=== PATIENT | female | born 1970 | race Caucasian/White ===

== ENCOUNTER → 2020-09-26 | Outpatient (CLI) | payer BC ==
[2020-09-26 08:16] LABS: HEMOGLOBIN 14.3 gm/dl (12.3-15.3); RED BLOOD COUNT 4.78 M/UL (4.00-5.10); WHITE BLOOD COUNT 7.9 K/UL (4.5-11.0)
[2020-09-26 08:55] LABS: BUN/CREATININE RATIO 19 (0-10)
== END ==
LOC: LAB 07:27
PROVIDERS: Nurse Practitioner Family
DX: Z00.00 Encounter for general adult medical examination without abnormal findings (principal); M25.50 Pain in unspecified joint; J30.9 Allergic rhinitis, unspecified; E78.5 Hyperlipidemia, unspecified; E03.9 Hypothyroidism, unspecified; K58.9 Irritable bowel syndrome, unspecified; R10.13 Epigastric pain; E53.8 Deficiency of other specified B group vitamins; E79.0 Hyperuricemia without signs of inflammatory arthritis and tophaceous disease; R53.83 Other fatigue
CPT/HCPCS: 36415; 80053; 80061; 82607; 84439; 84443; 84550; 85025

== ENCOUNTER → 2020-11-22 | Outpatient (CLI) | payer BC ==
[2020-11-23 15:09] LABS: ENDOMYSIAL ANTIBODY IGA Negative (Negative); IMMUNOGLOBULIN A, QN, SERUM 126 mg/dL (87-352); T-TRANSGLUTAMINASE (TTG) IGA <2 U/mL (0-3); T-TRANSGLUTAMINASE (TTG) IGG 3 U/mL (0-5)
== END ==
LOC: LAB 10:54
PROVIDERS: Nurse Practitioner Family
DX: E03.9 Hypothyroidism, unspecified (principal); R10.84 Generalized abdominal pain; R14.0 Abdominal distension (gaseous)
CPT/HCPCS: 36415; 82784; 84439; 84443

== ENCOUNTER → 2021-01-18 | Outpatient (CLI) | payer BC ==
[2021-01-18 07:57] LABS: HEMOGLOBIN 14.9 gm/dl (12.3-15.3); RED BLOOD COUNT 4.69 M/UL (4.00-5.10); WHITE BLOOD COUNT 7.9 K/UL (4.5-11.0)
[2021-01-18 08:08] LABS: BUN/CREATININE RATIO 21 (0-10)
[2021-01-19 07:10] LABS: VITAMIN D, 25-HYDROXY 57.2 ng/mL (30.0-100.0)
[2021-01-19 10:14] LABS: INSULIN 10.9 uIU/mL (2.6-24.9)
== END ==
LOC: LAB 07:19
PROVIDERS: Nurse Practitioner Family
DX: R53.83 Other fatigue (principal); E78.5 Hyperlipidemia, unspecified; M25.50 Pain in unspecified joint
CPT/HCPCS: 36415; 80053; 80061; 82607; 84439; 84443; 84550; 85025; 86141

== ENCOUNTER → 2021-05-20 | Outpatient (CLI) | payer BC ==
[2021-05-20 10:22] LABS: HEMOGLOBIN 14.3 gm/dl (12.3-15.3); RED BLOOD COUNT 4.69 M/UL (4.00-5.10); WHITE BLOOD COUNT 6.8 K/UL (4.5-11.0)
== END ==
LOC: LAB 09:56
PROVIDERS: Nurse Practitioner Family
DX: Z00.00 Encounter for general adult medical examination without abnormal findings (principal); E78.5 Hyperlipidemia, unspecified; E03.9 Hypothyroidism, unspecified; J30.9 Allergic rhinitis, unspecified; M25.50 Pain in unspecified joint; K58.9 Irritable bowel syndrome, unspecified; R10.13 Epigastric pain; E53.8 Deficiency of other specified B group vitamins; R53.83 Other fatigue
CPT/HCPCS: 36415; 80053; 80061; 82607; 85025